=== PATIENT | male | born 1975 | race Caucasian/White ===

== ENCOUNTER → 2019-11-11 | Outpatient (REF) | payer OTHER | LOC: M LAB REF 16:25 | PROVIDERS: ATTEND Physician Assistant | DX: Z20.9 Contact with and (suspected) exposure to unspecified communicable disease (principal) ==

== ENCOUNTER 2023-06-23 09:55 | Day surgery (SDC) | payer OTHER ==
[~2023-06-23] VITALS: Ht 188 cm; Wt 85.7 kg
[~2023-06-23 09:55] MED LIST: CARA1TAB6 PO; CIDA500T2 PO; CVS1CAP2 PO; D-101000 PO; NIRM1TAB PO; NS 1,000 ML IV ONE; OMEG10002 PO; PROT1TAB2 PO; SAW1CAP3 PO; SUCR1TAB56 PO; VITMTA PO
[2023-06-23] MEDS ORDERED: propofoL 500 MG/50 ML VIAL As Ordered ONE (10:34)
[2023-06-23] MEDS ORDERED: LIDOCAINE 2% 100MG/5ML SDV (FOR ANES.) As Ordered ONE (10:34)
[2023-06-23] MEDS ORDERED: fentaNYL 100 MCG/2 ML INJECTION As Ordered ONE (10:34)
[2023-06-23 13:10] VITALS: BP 122/75; TEMP 97.5; O2SAT 97
== END 2023-06-23 13:13 | disposition home or self-care (01) ==
LOC: M OPP 09:55
PROVIDERS: ATTEND Internal Medicine Gastroenterology
DX: K63.5 Polyp of colon (principal); K57.30 Diverticulosis of large intestine without perforation or abscess without bleeding; K64.4 Residual hemorrhoidal skin tags; K64.8 Other hemorrhoids; K29.70 Gastritis, unspecified, without bleeding; R10.13 Epigastric pain; R63.4 Abnormal weight loss; R93.3 Abnormal findings on diagnostic imaging of other parts of digestive tract; Z87.891 Personal history of nicotine dependence; Z79.620 Long term (current) use of immunosuppressive biologic; Z79.899 Other long term (current) drug therapy
CPT/HCPCS: 43239; 45385; 88305; J3010

== ENCOUNTER 2023-09-11 01:17 | Observation (INO) | payer OTHER ==
[~2023-09-11] VITALS: Ht 188 cm; Wt 90.5 kg
[~2023-09-11 01:17] MED LIST changes: -NS 1,000 ML IV ONE
[2023-09-11] MEDS: KETOROLAC 30 MG/ML 1ML VIAL IV ONE (05:13)
[2023-09-11] MEDS: diazePAM 10MG/2ML SYRINGE IV ONE (05:13)
[2023-09-11] MEDS: MORPHINE 4 MG/ML 1ML VIAL IV PRN ×2 (08:01→21:12)
[2023-09-11] MEDS: ONDANSETRON 4MG 2ML VIAL IV ONE (08:02)
[2023-09-11 11:49] LABS: BASO % 0.6 % (0.0-1.0); EOS # 0.1 10^3/uL (0.0-0.5); EOS % 2.2 % (0.0-3.0); HEMATOCRIT 42.4 % (42.0-52.0); HEMOGLOBIN 14.8 g/dl (13.5-17.5); LYMPH # 1.8 10^3/uL (1.5-5.0); LYMPH % 32.5 % (24.0-44.0); MEAN CORPUSCULAR HEMOGLOBIN 30.6 pg (27.0-33.0); MEAN CORPUSCULAR HGB CONC 34.9 g/dl (32.0-36.5); MEAN CORPUSCULAR VOLUME 87.8 fl (80.0-96.0); MONO # 0.6 10^3/uL (0.0-0.8); NEUTROPHILS # 2.9 10^3/uL (1.5-8.5); NEUTROPHILS % 53.3 % (36.0-66.0); PLATELET COUNT, AUTOMATED 256 10^3/uL (150-450); RED BLOOD COUNT 4.83 10^6/uL (4.30-6.10); WHITE BLOOD COUNT 5.5 10^3/uL (4.0-10.0)
[2023-09-11 12:08] LABS: BLOOD UREA NITROGEN 17 MG/DL (9-23); CALCIUM LEVEL 9.6 MG/DL (8.5-10.1); CARBON DIOXIDE LEVEL 25 MMOL/L (20-31); CHLORIDE LEVEL 112 MMOL/L (98-107); CREATININE FOR GFR 0.98 MG/DL (0.70-1.30); GLOMERULAR FILTRATION RATE > 60.0 (>60); GLUCOSE, FASTING 83 MG/DL (60-100); POTASSIUM SERUM 4.5 MMOL/L (3.5-5.1); SODIUM LEVEL 142 MMOL/L (136-145)
[2023-09-11] MEDS ORDERED: MULT1TAB83 PO (12:38)
[2023-09-11] MEDS ORDERED: HOME MED LIST COMPLETE! XX SCH (12:40)
[2023-09-11] MEDS ORDERED: ISOVUE-370 76% 100ML VIAL As Ordered ONE (12:51)
[2023-09-11] MEDS ORDERED: KETOROLAC TROMETHAMINE 10 MG TAB PO PRN (14:40)
[2023-09-11] MEDS ORDERED: ACETAMINOPHEN TAB 650MG DOSE (2X325MG) PO PRN (14:40)
[2023-09-11 17:41] VITALS: BP 115/72; TEMP 97.7; O2SAT 97
[2023-09-11] MEDS: BACLOFEN 10 MG TAB PO SCH (21:10)
[2023-09-11 21:53] VITALS: BP 117/65; TEMP 97.2; O2SAT 97
[2023-09-12 05:12] VITALS: BP 116/65; TEMP 97.5; O2SAT 96
[2023-09-12 06:45] LABS: ALBUMIN 3.3 G/DL (3.2-5.2); ALKALINE PHOSPHATASE 74 U/L (46-116); ALT/SGPT 17 U/L (7.0-40); AST/SGOT 14 U/L (<34); BILIRUBIN,TOTAL 0.4 MG/DL (0.3-1.2); BLOOD UREA NITROGEN 18 MG/DL (9-23); CALCIUM LEVEL 10.3 MG/DL (8.5-10.1); CARBON DIOXIDE LEVEL 26 MMOL/L (20-31); CHLORIDE LEVEL 109 MMOL/L (98-107); CREATININE FOR GFR 1.15 MG/DL (0.70-1.30); GLOMERULAR FILTRATION RATE > 60.0 (>60); GLUCOSE, FASTING 108 MG/DL (60-100); POTASSIUM SERUM 4.5 MMOL/L (3.5-5.1); SODIUM LEVEL 142 MMOL/L (136-145); TOTAL PROTEIN 6.1 G/DL (5.7-8.2)
[2023-09-12 06:56] LABS: PROCALCITONIN <0.04 ng/ml
[2023-09-12] MEDS ORDERED: BACLOFEN 10 MG TAB PO SCH (09:00)
[2023-09-12] MEDS: PANTOPRAZOLE 40MG TAB (PROTONIX) PO SCH (09:21)
[2023-09-12] MEDS ORDERED: BACL10TA2 PO (12:34)
[2023-09-12] MEDS ORDERED: OXYC1TAB23 PO (12:34)
== END 2023-09-12 13:15 | disposition home or self-care (01) ==
LOC: M ED 01:17 → EDBD 01:17 → M ED INP 01:18 → M MSPAV 17:24
PROVIDERS: ADMIT Hospitalist; ATTEND Hospitalist
DX: M54.50 Low back pain, unspecified (principal); G89.21 Chronic pain due to trauma; Z79.899 Other long term (current) drug therapy; F12.10 Cannabis abuse, uncomplicated
CPT/HCPCS: 36415; 72132; 80048; 80053; 84145; 85025; 87635; 93041; 94760; 96374; 96375; 96376; 97161; 99285; J1885; J2405; J3360; Q9967

== ENCOUNTER → 2023-10-29 | Outpatient (CLI) | payer OTHER ==
[~2023-10-29] MED LIST changes: +BACL10TA2 PO; +MULT1TAB83 PO; +OXYC1TAB23 PO
== END ==
LOC: M PLARAD 07:44
PROVIDERS: ATTEND Physician Assistant
DX: M51.16 Intervertebral disc disorders with radiculopathy, lumbar region (principal); M47.896 Other spondylosis, lumbar region; M51.26 Other intervertebral disc displacement, lumbar region